=== PATIENT | male | born 1995 | race Asian ===

== ENCOUNTER 2021-09-10 10:48 | Emergency (ER) | payer MEDICAID, SELFPAY ==
[~2021-09-10] VITALS: Ht 175.3 cm; Wt 72.6 kg
[2021-09-10 11:05] VITALS: BP 123/74
[2021-09-10] MEDS ORDERED: PROM118S5 PO (11:06)
[2021-09-10] MEDS ORDERED: NAPR-54 PO (11:06)
--- NOTE | 2021-09-10 11:11 | NUR ---
TENT 1
[2021-09-10 11:56] VITALS: BP 123/74
--- NOTE | 2021-09-10 11:56 | NUR ---
Pt assessed and discharged by JESUS MANUEL Contreras, no nursing interventions performed on patient
--- NOTE | 2021-09-10 11:57 | NUR ---
Patient discharged with v/s stable. Written and verbal after care instructions given and explained. Patient alert, oriented and verbalized understanding of instructions. Ambulatory with steady gait. All questions addressed prior to discharge. ID band removed. Patient advised to follow up with PMD. Rx of Naprosyn and promethazine dm given. Patient educated on indication of medication including possible reaction and side effects. Opportunity to ask questions provided and answered.
== END 2021-09-10 11:50 | disposition home or self-care (01) ==
LOC: MED 10:48
DX: B34.9 Viral infection, unspecified (principal)
CPT/HCPCS: 99283